=== PATIENT | male | born 1950 | race Caucasian/White ===

== ENCOUNTER → 2020-02-25 07:57 | Outpatient (CLI) | payer MEDICARE, OTHER | END | disposition home or self-care (01) | LOC: D.HCCECHO 07:57 | PROVIDERS: ATTEND Internal Medicine Cardiovascular Disease | DX: I42.9 Cardiomyopathy, unspecified (principal) ==

== ENCOUNTER → 2020-04-19 07:19 | Outpatient (CLI) | payer MEDICARE, OTHER | END | disposition home or self-care (01) | LOC: D.HCCARDIO 07:19 | PROVIDERS: ATTEND Internal Medicine Cardiovascular Disease | DX: I25.10 Atherosclerotic heart disease of native coronary artery without angina pectoris (principal) ==

== ENCOUNTER 2020-05-10 10:50 | Outpatient (CLI) | payer MEDICARE, OTHER ==
[~2020-05-10] VITALS: Ht 182.9 cm; Wt 115.5 kg
--- NOTE | ~2020-05-10 | OP ---
PATIENT NAME: YUE MORENO MEDICAL RECORD: [id number] :52 LOCATION:[id number] ADMISSION DATE: SURGEON: MOY QUINTANA MD DATE OF OPERATION: 05/10/2020 PROCEDURE: Left heart catheterization, selective coronary angiography, right femoral artery approach. CATHETERS: A 5-[place]izen [place] sheath, 5/4 left and right Nava, 5/4 pig. The procedure was well tolerated. The patient returned to the webber after we proceeded with the PTCA stenting to the jamul right. FINDINGS: Left ventriculography in 30-degree LEES view: Normal wall motion and normal systolic function. CORONARY ANATOMY: LEFT MAIN: Left main is free of disease. LAD: Totally occluded in its proximal portion. CIRCUMFLEX: There is a small circumflex branch off the left main. It is free of disease. RIGHT CORONARY ARTERY: [place] right coronary jamul has a 90% plus stenosis in mid portion with severe diffuse disease distally. BYPASS GRAFT: Saphenous vein graft to LAD: This graft itself is highly ectatic consistent with a 20+ HeRO graft; however, this fills the LAD and LAD has no post-anastomotic stenosis. Ramus high OM graft is noted in saphenous vein graft. This again is highly ectatic; however, fills the ramus without stenosis distally. Circumflex graft: Circumflex graft again ectatic but patent with no distal circumflex stenosis. PLAN: Intervention of the jamul right momentarily. DESCRIPTION OF PROCEDURE: A 5-Citizen [place] sheath was exchanged for a 6-Citizen [place] sheath. Hockey stick guide catheter provided excellent guide catheter support followed by 300 cm Whisper wire. We initially used a 3.0 balloon starting distally at the PDA all the way up to the 90% plus stenosis with inflations up to 10 and 12 atmospheres for 45 seconds. This showed excellent resolution of a distal stenosis both mid stenosis still significant residual. This was addressed with a 3.0 x 18 mm Jerome drug-eluting stent up to 14 atmospheres. Final angiography shows much improved vessel with distal vasculature improved as well as the 90% stenosis, no significant residual. RON flow was 3 throughout the procedure. Sheath was closed with ExoSeal device. Plavix loaded in the lab. TRANSINT:[id number] Voice Confirmation ID: [id number] DOCUMENT ID: [id number] OPERATIVE REPORT [id number] YUE MORENO MOY QUINTANA MD CC: [id number] DICTATION DATE: 05/10/20 1544 TRANSPORT COORDINATOR: 05/11/20 0051 DEP CLI 05/10/20 [place] [id number] [place] [id number]
--- NOTE | ~2020-05-10 | HP ---
PATIENT: YUE MORENO MEDICAL RECORD: [id number] ACCOUNT: [id number] LOCATION:[facility] : 52 ADMISSION DATE: 05/10/20 PCP: RACHEL PEDRAZA MD HISTORY AND PHYSICAL EXAMINATION HISTORY OF PRESENT ILLNESS: This is a 69-year-old gentleman with a known history of coronary artery disease, status post coronary bypass grafting 20 years ago, was seen in the office with cardiomyopathy, EF has actually improved on therapy as part of workup. He also underwent a Cardiolite stress testing, which showed reversibility along the anterior and lateral fischer. He is 20 years out from his bypass grafting with no intervention since, being admitted for angiography, intervention based on above. PAST MEDICAL HISTORY: Includes: 1. History of cardiomyopathy, improved on therapy. 2. Hypertension. 3. Coronary artery disease as described above. 4. Dyslipidemia. MEDICATIONS: Include aspirin 81 every day, carvedilol 6.25 every day, Plavix 75 every day, simvastatin 40 every day, Imdur 30 every day. PHYSICAL EXAMINATION: GENERAL: Pleasant gentleman, in no acute distress, appears stated age. HEENT: Normocephalic, atraumatic. NECK: No bruits noted. HEART: Regular. LUNGS: Fair air excursion. ABDOMEN: Soft, nontender. EXTREMITIES: Pulses 2+. No edema. IMPRESSION: 1. Recurrent ischemia, some 20 years out from bypass grafting. 2. Cardiomyopathy, improved on therapy. PLAN: For angiography, intervention based on above. TRANSINT:[id number] Voice Confirmation ID: [id number] DOCUMENT ID: [id number] MOY QUINTANA MD CC: [id number] DICTATION DATE: 05/10/20832 DISTRIBUTION DISPATCHER: 05/10/[address] [facility] [address] [place] [id number]
--- NOTE | ~2020-05-10 | HEMODYNAMI ---
PATIENT:YUE MORENO MEDICAL RECORD: [id number] : 52 LOCATION:[facility] ADMISSION DATE: 05/10/20 Generatedon:05/10/202015:44 Patient name: YUE MORENO Patient #: [id number] SSN: [id number] : 1950 Date of study: 05/10/2020 Page: Of Hemodynamic Procedure Report Patient Data Patient Demographics Procedure consent was obtained First Name: YUE Gender: Male Last Name: JOSH : 1950 Middle Initial: BENJAMIN Age: 69 year(s) Patient #: [id number] Race: SSN: [id number] Additional ID: [id number] Contact details Address: [address] [place] [address] [facility] State: [place] City: [place] Zip code: [address] Past Medical History Performed procedures and imaging results Date Procedure Procedure Results Comments 04/21/2020 Stress testing Positive->Intermediate with SPECT MPI risk Allergies Allergen Reaction Date Comments Reported Other allergy 05/10/2020 [facility] Admission Admission Data Admission Date: 05/10/2020 Admission Time: 10:50 Arrival Date: 05/10/2020 Arrival Time: 0:00 Admit Source: Other Height (in.): 72.05 BSA: 2.37 (m2) Height (cm.): 183 BMI: 34.64 (kg/m2) Weight (lbs.): 255.74 Weight (kg.): 116 Lab Results Lab Result Date: 05/10/2020 Lab Result Time: 0:00 Biochemistry Name Units Result Min Max BUN mg/dl 18 --(---*)-- 7 18 Creatinine mg/dl 1.1 --(--*-)-- 0.6 1.3 eGFR ml/min 70.60690 *-(----)-- 90 120 NONAFRICAN CBC Name Units Result Min Max Hematocrit % 45.7 --(-*--)-- 42 54 Hemoglobin g/dl 14.9 --(-*--)-- 13.5 17.5 Procedure Procedure Types Cath Procedure Diagnostic Procedure [facility] w/Coronaries w/Grafts Sedation Charges Moderate Sedation up to 30 minutes PCI Procedure Coronary Stent Coronary Stent Initial Hemochron ACT Test Procedure Description Procedure Date Procedure Date: 05/10/2020 Procedure Start Time: 15:02 Procedure End Time: 15:42 Procedure Staff Name Function Miah Hoang MD Performing Physician Kathy Schneider RT Monitor Joseline Martinez RT Scrub Dontae Lam RN Nurse Indication CAD Procedure Data Cath Procedure Fluoroscopy Diagnostic fluoroscopy Total fluoroscopy Time: time: 10.1 min 10.1 min Diagnostic fluoroscopy Total fluoroscopy dose: dose: 2458 mGy 2458 mGy Contrast Material Contrast Material Type Amount (ml) Isovue 300 222 Entry Location Entry Primary Successful Side Size Upsize Upsize Entry Closure Succes sful Closure Location (Fr) 1 (Fr) 2 (Fr) Remarks Device Remarks Femoral Right 5 Fr 6 Fr Exoseal artery Short Estimated blood loss: 10 ml Diagnostic catheters Device Type Used For End Catheter Placement MULTIPACK JL 4.0 5Fr Left Coronary catheter Angiography MULTIPACK 3DRC 5Fr Procedure catheter MULTIPACK Pigtail 5 Fr LV Angiography catheter DIAGNOSTIC AR MOD 5Fr Procedure Catheter (632843T) Procedure Complications No complications Procedure Medications Medication Administration Route Dosage Oxygen etCO2 Nasal cannula 2 l/min Lidocaine 2% added to field 20 Heparin Flush Bag added to field 2 bags (1000units/500ml NS) 0.9% NaCl I.V. 100 ml/hr Versed I.V. 1 mg Fentanyl I.V. 50 mcg Versed I.V. 1 mg Fentanyl I.V. 50 mcg Heparin Bolus I.V. 5000 units Versed I.V. 1 mg Versed I.V. 1 mg Fentanyl I.V. 50 mcg Fentanyl I.V. 50 mcg Versed I.V. 1 mg Hemodynamics Rest BSA: 2.37 (m2) HGB: 14.9 (g/dl) O2 Consumption: Estimated: 277.22 (ml/min) O2 Co nsumption indexed: Estimated:116.97 (ml/min/m) Heart Rate: 72 (bpm) Pressure Samples Time Site Value (mmHg) Purpose Heart Use Rate(bpm) 15:16 LV 122/5,11 Snapshot 70 15:17 AO 123/89(83) Pullback 70 Gradients Valve Time Site Site 2 Mean SEP/DFP Peak To Heart Use 1 (mmHg) (sec/min) Peak Rate (mmHg) (bpm) Aortic 15:17 LV AO 15 21 70 123/89(83) Calculations Valve P-P Mean Valve Index Valve Source Name Gradient Area Flow (cm2) Aortic 15 15 Snapshots Pre Cath Intra NCS Post Cath Vital Signs Time Heart Resp SPO2 etCO2 NIBP (mmHg) Rhythm Pain Sedation Rate (ipm) (%) (mmHg) Status Level (bpm) 14:42:22 69 17 99 32.9 147/83(113) NSR 0 (11) 10(A) , No pain 14:46:51 69 15 94 30.6 140/71(92) NSR 0 (11) 10(A) , No pain 14:51:19 69 11 94 0 119/75(100) NSR 0 (11) 10(A) , No pain 14:55:37 69 19 95 0 108/76(90) NSR 0 (11) 10(A) , No pain 14:59:49 69 17 95 0 123/79(97) NSR 0 (11) 10(A) , No pain 15:04:11 69 16 93 0 122/70(93) NSR 0 (11) 9(A) , No pain 15:08:31 69 13 94 2.9 125/73(84) NSR 0 (11) 9(A) , No pain 15:12:52 69 16 96 27.6 129/78(107) NSR 0 (11) 9(A) , No pain 15:17:16 69 14 95 32.8 117/72(100) NSR 0 (11) 9(A) , No pain 15:21:34 69 13 94 39.6 127/77(93) NSR 0 (11) 9(A) , No pain 15:25:52 69 10 98 22.4 113/73(91) NSR 0 (11) 9(A) , No pain 15:30:08 69 11 94 34.4 128/78(111) NSR 0 (11) 10(A) , No pain 15:34:32 69 13 97 29.1 118/69(94) NSR 0 (11) 10(A) , No pain 15:38:50 69 12 98 33.6 134/78(102) NSR 0 (11) 10(A) , No pain Medications Time Medication Route Dose Verified Delivered Reason Notes Effectiveness by by 14:41:36 Oxygen etCO2 2 Miah Buffie used for Nasal l/min St Orlando Lam RN procedure cannula 14:41:45 Lidocaine 2% added 20ml Miah Miah for local to vial [facility] anesthetic field MD TRUJILLO 14:41:53 Heparin Flush added 2 Miah Miah used for Bag to bags [facility] procedure (1000units/500ml field MD TRUJILLO NS) 14:42:03 0.9% NaCl I.V. 100 Miah Buffie Per physician ml/hr St Orlando Lam RN, MD 14:52:13 Versed I.V. 1 mg Miah Buffie for sedation St Orlando Lam RN, MD 14:52:20 Fentanyl I.V. 50 Miah Buffie for sedation mcg [facility] Orlando Lam RN, MD 15:00:45 Versed I.V. 1 mg Miah Buffie for sedation St Orlando Lam RN, MD 15:00:48 Fentanyl I.V. 50 Miah Buffie for sedation mcg [facility] Orlando Lam RN, MD 15:06:53 Versed I.V. 1 mg Miah Buffie for sedation St Orlando Lam RN, MD 15:06:58 Fentanyl I.V. 50 Miah Buffie for sedation mcg [facility] Orlando Lam RN, MD 15:15:00 Fentanyl I.V. 50 Miah Buffie for sedation mcg [facility] Orlando Lam RN, MD 15:15:54 Versed I.V. 1 mg Miah Buffie for sedation St Orlando Lam RN, MD 15:21:46 Heparin Bolus I.V. 5000 Miah Buffie for verif ied units St Orlando Lam RN anticoagulation with dr MD boudreaux 15:28:38 Versed I.V. 1 mg Miah Buffie for sedation St Orlando Lam RN, MD Procedure Log Time Note 14:11:05 Informed consent obtained and on chart 14:11:23 Diagnostic Cath Status : Elective 14:12:19 Stress Test: yes; abnormal inferior 14:12:26 Admit Source: Other 14:12:32 ACC Patient presents with Stable Angina CCS Anginal Class 2--Slight limitation of ordinary activity. 14:12:36 Procedure Status Elective Heart Cath (OP). 14:12:39 Time tracking: Regular hours (M-F 7:00 - 5:00) 14:12:44 Plan of Care:Hemodynamics will remain stable., Cardiac rhythm will remain stable., Comfort level will be maintained., Respiratory function will remain adequate., Patient/ family verbilizes understanding of procedure., Procedure tolerated without complication., Recovers from procedure without complications.. 14:26:01 madonna Schneider RT(R) (CV) sent for patient. Start room use. 14:27:38 Indication : CAD 14:27:49 Arrival Date: 05/10/2020 12:00:00 AM 14:29:58 Patient allergic to Other allergyNKDA 14:31:11 Lab Result : eGFR NONAFRICAN 70.72753 ml/min 14:31:11 Lab Result : Creatinine 1.1 mg/dl 14:31:11 Lab Result : BUN 18 mg/dl 14:31:11 Lab Result : Hemoglobin 14.9 g/dl 14:31:12 Lab Result : Hematocrit 45.7 % 14:31:19 Patient Height : 72.05 inches 14:31:23 Patient Weight : 255.74 lbs 14:31:54 H&P Date Dictated: 05/10/2020 H&P Addendum completed by physician on day of procedure. (MUST COMPLETE FOR ALL OUTPATIENTS), New H&P dictated by physician.. 14:32:41 Patient received from Pre/Post Procedure Room to CCL 1 Alert and oriented. Tansferred to table in Supine position. 14:32:45 Warm blankets applied, and lisandra hugger turned on for patient comfort. 14:32:46 Correct patient and procedure confirmed by team. 14:32:47 ECG and BP/O2 sat monitors applied to patient. 14:32:52 Pre-procedure instructions explained to patient. 14:32:55 Pre-op teaching completed and patient verbalized understanding. 14:32:58 Family in patients room. 14:33:02 Patient NPO since Midnight. 14:33:05 Is the patient allergic to Iodine/contrast media? No. 14:33:08 Was the patient premedicated? Yes 14:33:13 Is patient on blood thinner?Yes 14:33:18 ACC The patient was administered the following blood thiners within the last 24 hours: ACCPlavix 14:33:26 Patient diabetic? No. 14:33:29 - 14:33:30 ----Pre-sedation anethsthesia assessment.---- 14:33:34 Previous problem with sedation/anesthesia? No ? 14:33:37 Snore? Yes 14:33:39 Sleep apnea? No 14:33:42 Opens mouth fully? Yes 14:33:45 Sticks out tongue? Yes 14:33:49 Airway obstruction? No ? 14:33:52 Dentures? No ? 14:41:11 Vital chart was started 14:41:12 Baseline sample Acquired. 14:41:18 Rhythm: sinus rhythm 14:41:20 Baseline sample Acquired. 14:41:23 Full Disclosure recording started 14:41:35 Pre procedure: right dorsailis pedis pulse 1+ Palpable, but thready & weak; easily obliterated 14:41:36 Oxygen 2 l/min etCO2 Nasal cannula was administered by Dontae Lam RN; used for procedure; Verbal order read back and verified. 14:41:45 Lidocaine 2% 20ml vial added to field was administered by Miah Hoang MD; for local anesthetic; Verbal order read back and verified. 14:41:46 IV patent on arrival in left forearm with 0.9% NaCl at [facility]. 14:41:53 Heparin Flush Bag (1000units/500ml NS) 2 bags added to field was administered by Miah Hoang MD; used for procedure; Verbal order read back and verified. 14:41:53 Lab results completed and on chart. 14:42:03 0.9% NaCl 100 ml/hr I.V. was administered by Dontae Lam RN; Per physician; Verbal order read back and verified. 14:43:45 Right groin area was prepped with chlora-prep and draped in sterile fashion 14:43:47 Alarms reviewed by R. N. 14:43:47 Sharps counted by scrub and verified by R.N. 14:43:52 Use device set Femoral Dx 14:43:54 ACIST Syringe (20311) opened to sterile field. 14:43:55 Bag Decanter (2001S) opened to sterile field. 14:43:56 Medline Cath Pack ([id number]) opened to sterile field. 14:43:58 ACIST Hand Control (47437) opened to sterile field. 14:43:58 ACIST Manifold (75904) opened to sterile field. 14:44:00 DIAGNOSTIC Multipack 5Fr catheter set ([id number]) opened to sterile field. 14:44:00 Tegaderm 4 x 4 (1626W) opened to sterile field. 14:44:02 SHEATH 5FR Udell (ZUA863) opened to sterile field. 14:44:03 EMERALD Guide Wire (264-130) opened to sterile field. 14:51:03 Risk of Mortality: 0.1 14:51:07 Risk of blood transfusion: 0.1 14:51:11 Risk of NELA: 0.7 14:51:15 Physician arrived 14:51:15 --------ALL STOP TIME OUT------ 14:51:16 Final Timeout: patient, procedure, and site verified with staff and physician. All members of the team are in agreement. 14:51:19 Right groin site verified by team. 14:51:25 Fire Safety Assessment: A--An alcohol-based skin anteseptic being used preoperatively., C--Open oxygen or nitrous oxide is being used., D--An ESU, laser, or fiber-optic light is being used. 14:51:29 Physical assessment completed. ASA score P 2 - A patient with mild systemic disease as per Miah Hoang MD. 14:51:35 2) 60-89 Mildly reduced kidney function, and other findings (as for stage 1) point to kidney disease. 14:51:41 Maximum allowable contrast dose (3.7 X eGFR X 0.75)197 ml. 14:51:50 Sedation plan: IV Moderate Sedation Medication:Versed, Fentanyl 14:52:13 Versed 1 mg I.V. was administered by Dontae Lam RN; for sedation; Verbal order read back and verified. 14:52:20 Fentanyl 50 mcg I.V. was administered by Dontae Lam RN; for sedation; Verbal order read back and verified. 14:53:26 Zero performed for pressure channel P1 15:00:45 Versed 1 mg I.V. was administered by Dontae Lam RN; for sedation; Verbal order read back and verified. 15:00:48 Fentanyl 50 mcg I.V. was administered by Dontae Lam RN; for sedation; Verbal order read back and verified. 15:01:25 Procedure started. 15:02:52 Local anesthetic to right femoral artery with Lidocaine 2% by Miah Perry MD.INITIAL ACCESS ONLY 15:03:09 A 5 Fr sheath was inserted into the Right Femoral artery 15:03:21 A MULTIPACK JL 4.0 5Fr catheter was advanced over the wire and used for Left Coronary Angiography. 15:04:13 LCA angiography performed. 15:04:20 Injector settings: Ml/sec: 3, Volume: 6, 15:04:35 Catheter removed. 15:04:48 A MULTIPACK 3DRC 5Fr catheter was advanced over the wire and used for Procedure. 15:06:06 RCA angiography performed. 15:06:36 SVG to Circ AND OM angiography performed. 15:06:42 Injector settings: Ml/sec: 3, Volume: 6, 15:06:53 Versed 1 mg I.V. was administered by Dontae Lam RN; for sedation; Verbal order read back and verified. 15:06:58 Fentanyl 50 mcg I.V. was administered by Dontae Lam RN; for sedation; Verbal order read back and verified. 15:08:09 SVG to Ramus angiography performed. 15:08:22 Injector settings: Ml/sec: 3, Volume: 6, 15:09:39 KRISHNA to LAD angiography performed. 15:10:21 Injector settings: Ml/sec: 3, Volume: 6, 15:10:24 Catheter removed. 15:11:00 A DIAGNOSTIC AR MOD 5Fr Catheter ([id number]) was advanced over the wire and used for Procedure. 15:11:04 SVG to RCA angiography performed. 15:12:01 SVG to Circ angiography performed. 15:15:00 Fentanyl 50 mcg I.V. was administered by Dontae Lam RN; for sedation; Verbal order read back and verified. 15:15:14 RCA angiography performed. 15:15:19 Injector settings: Ml/sec: 3, Volume: 6, 15:15:39 Catheter removed. 15:15:52 A MULTIPACK Pigtail 5 Fr catheter was advanced over the wire and used for LV Angiography. 15:15:54 Versed 1 mg I.V. was administered by Dontae Lam RN; for sedation; Verbal order read back and verified. 15:16:25 LV gram done using LEES 15:16:30 Injector settings: Ml/sec: 5, Volume: 15, 15:17:08 EF : 50 % 15:17:10 LV hemodynamics recorded. 15:17:17 Catheter removed. 15:17:22 Proceeding to intervention. 15:18:45 SHEATH 6FR Udell (MAD429) opened to sterile field. 15:18:47 WHISPER 300cm guide wire ([id number]) opened to sterile field. 15:19:03 GUIDE 6FR HS I catheter (LA6HSI) opened to sterile field. 15:19:30 Sheath upsized to a 6 Fr Short. 15:19:43 Pre PCI Site: [place] mRCA has 90% stenosis. 15:19:51 6 Fr HSI guide catheter was inserted over the wire 15:19:59 [id number] wire advanced. 15:20:03 ACC Pre-intervention RON Flow is 3. 15:21:17 INFLATOR Merit BasixCompak (GN7928) opened to sterile field. 15:21:46 Heparin Bolus 5000 units I.V. was administered by Dontae Lam RN; for anticoagulation; verified with dr boudreaux Verbal order read back and verified. 15:25:06 Wire advanced across lesion. 15:26:13 Inflate balloon Inflation number: 1 A EUPHORA 3.0 x 15 Balloon ([id number]) was prepped and advanced across the Dist RCA , then inflated to 10 DANGELO for 0:05 (min:sec) . 15:26:32 Inflation number: 2 The EUPHORA 3.0 x 15 Balloon ([id number]) was reinflated across the Dist RCA , to 10 DANGELO for 0:15 (min:sec) . 15:26:49 Inflation number: 3 The EUPHORA 3.0 x 15 Balloon ([id number]) was reinflated across the Dist RCA , to 10 DANGELO for 0:10 (min:sec) . 15:26:54 Inflation number: 4 The EUPHORA 3.0 x 15 Balloon ([id number]) was reinflated across the Dist RCA , to 10 DANGELO for 0:00 (min:sec) . 15:27:03 Inflation number: 5 The EUPHORA 3.0 x 15 Balloon ([id number]) was reinflated across the MID RCA , to 12 DANGELO for 0:00 (min:sec) . 15:27:40 Inflation number: 6 The EUPHORA 3.0 x 15 Balloon ([id number]) was reinflated across theMID RCA , to 12 DANGELO for 0:00 (min:sec) . 15:28:21 Balloon removed over the wire. 15:28:38 Versed 1 mg I.V. was administered by Dontae Lam RN; for sedation; Verbal order read back and verified. 15:30:16 MICROPUNCTURE 4FR Cook (O72578) opened to sterile field. 15:31:34 Place stent Inflation Number: 1 A DAVID RX 3.0 x 18 stent ([id number]) was prepped and advanced across the Mid RCA . The stent was deployed at 14 DANGELO for 0:16 (min:sec) . 15:32:10 Inflation number: 2 The EUPHORA 3.0 x 15 Balloon ([id number]) was reinflated across the Mid RCA , to 12 DANGELO for 0:00 (min:sec) . 15:33:23 Stent catheter was removed intact over wire. 15:33:27 ACC Post-intervention RON Flow is 3. 15:33:40 Post PCI Site: [place] mRCA has 0% stenosis. 15:34:05 EXOSEAL 6Fr (EX600) opened to sterile field. 15:34:08 Wire removed. 15:34:09 Guide catheter removed. 15:34:30 Sheath removed intact; hemostasis achieved with Exoseal to the Right Femoral artery. 15:34:34 Procedure ended.(Physican Out) 15:35:53 Fluoroscopy time 10.10 minutes. 15:36:02 Flurop Dose total: 2458 15:36:02 Fluoroscopy dose: 2458 mGy 15:36:16 Contrast amount:Isovue 300 222ml. 15:36:20 Maximum allowable dose exceeded? Yes. 15:36:22 Sharps counted by scrub and verified by R.N. 15:36:28 Post-op/insertion site Right Femoral artery dressed using a 4 x 4 and Tegaderm. 15:36:33 Post-procedure physical assessment completed. ASA score P 2 - A patient with mild systemic disease as per Miah Hoang MD. 15:36:38 Post procedure rhythm: unchanged. 15:36:43 Estimated blood loss: 10 ml 15:36:45 Post procedure instruction explained to patient.Patient verbalizes understanding. 15:36:46 Patient needs reinforcement of post procedure teaching. 15:37:40 Procedure type changed to Cath procedure, Diagnostic procedure, LHC, LH C w/Coronaries w/Grafts, Sedation Charges, Moderate Sedation up to 30 minutes, PCI procedure, Coronary Stent, Coronary Stent Initial, Hemochron ACT Test 15:37:43 Procedure and supply charges have been captured, reviewed, submitted an d are correct. 15:40:27 Procedure Complication : No complications 15:40:31 Vital chart was stopped 15:40:34 [facility] Findings: MVD- PCI performed (see procedure note) 15:41:05 ACT drawn and resulted at 162 seconds. (normal therapeutic range 180-24 0 seconds). 15:41:37 Operative report dictated upon procedure completion. 15:41:38 See physician's report for complete and final results. 15:41:41 Report given to Pre/Post Procedure Room. 15:41:47 Patient transfered to Pre/Post Procedure Room with Stretcher. 15:42:00 Procedure ended. 15:42:00 Full Disclosure recording stopped 15:42:12 ACC-PCI Only Patient was given prescriptions, or instructed by Miha Hoang MD to start/continue the following medications upon discharge: Plavix 15:42:14 End room use (Document Last) Intervention Summary Intervention Notes Time ActionType Lesion and Equipment Used Action# Pressure Duration Attributes 15:26:13 Inflate Dist RCA EUPHORA 3.0 x 1 10 00:05 balloon 15 Balloon ([id number]) 15:26:32 Reinflate Dist RCA EUPHORA 3.0 x 2 10 00:15 balloon 15 Balloon ([id number]) 15:26:49 Reinflate Dist RCA EUPHORA 3.0 x 3 10 00:10 balloon 15 Balloon ([id number]) 15:26:54 Reinflate Dist RCA EUPHORA 3.0 x 4 10 00:00 balloon 15 Balloon ([id number]) 15:27:03 Reinflate Dist RCA EUPHORA 3.0 x 5 10 00:00 balloon 15 Balloon ([id number]) 15:27:40 Reinflate Dist RCA EUPHORA 3.0 x 6 12 00:00 balloon 15 Balloon ([id number]) 15:31:34 Place stent Mid RCA DAVID RX 3.0 x 1 14 00:16 18 stent ([id number]) 15:32:10 Reinflate Mid RCA EUPHORA 3.0 x 2 12 00:00 balloon 15 Balloon ([id number]) Device Usage Item Name Manufacture Quantity Catalog Hospital Part Current [facility] Lot# / Number Charge Number Stock Stock Serial# Code ACIST Syringe Acist 1 70209 920601 038181 896253 20 (09251) Medical Systems Inc Bag Decanter Microtek 1 910374 81325 798239 5 () Medical Inc. Medline Cath Medline 1 [id number] 529990 82808 989073 5 Pack ([id number]) ACIST Hand Acist 1 12695 012314 027552 637619 5 Control Medical (06039) Systems Inc ACIST Manifold Acist 1 32780 266770 761325 744620 5 (61226) Medical Systems Inc DIAGNOSTIC Cardinal 1 VU5384 349346 13305 948755 30 Multipack 5Fr Health catheter set (SM5675) Tegaderm 4 x 4 3M 1 1626W 943856 486680 309639 5 (1626W) SHEATH 5FR Terumo 1 RQT977 198760 274902 326325 5 Udell (CAT458) EMERALD Guide Cardinal 1 502-455 842022 297834 649821 5 Wire (502-455) Health MULTIPACK JL Cardinal 1 658272 5 4.0 5Fr Health catheter MULTIPACK 3DRC Cardinal 1 062564 5 5Fr catheter Health MULTIPACK Cardinal 1 195598 5 Pigtail 5 Fr Health catheter DIAGNOSTIC AR Cardinal 1 [id number] 402821 097397 472772 15 MOD 5Fr Health Catheter (040043N) SHEATH 6FR Terumo 1 UQL892 133353 700557 250069 40 Udell (GZC206) WHISPER 300cm Loja 1 [id number] 171656 495275 688923 5 guide wire Vascular ([id number]) GUIDE 6FR HS I Medtronic 1 LA6HSI 495096 67726 073744 1 catheter (LA6HSI) INFLATOR Merit Merit 1 SR1548 724064 730878 414367 15 BasixCompak Medical (JA8928) EUPHORA 3.0 x Medtronic 1 [id number] 906865 879577 528062 5 [id number] 15 Balloon ([id number]) MICROPUNCTURE [employer] 1 B01944 008787 100237 929383 5 4FR [employer] (T87094) DAVID RX 3.0 x Medtronic 1 [id number] 196704 2571542 305612 5 [id number] 18 stent ([id number]) EXOSEAL 6Fr Cardinal 1 EX600 673029 364100 993885 10 (EX600) Health Signature Audit [place] Stage Time Signature Unsigned Intra-Procedure 05/10/2020 Kathy Schneider 3:42:48 PM RT(R) (CV) Intra-Procedure 05/10/2020 Dontae Lam RN 3:44:27 PM Intra-Procedure 05/10/2020 Miah Hoang MD 3:44:52 PM [facility] [address] [place] [address]
[2020-05-10] MEDS ORDERED: ATIVAN1 MG PO (11:13)
[2020-05-10] MEDS ORDERED: DONEPEZIL HCL10 MG PO (11:14)
[2020-05-10] MEDS ORDERED: XANAX0.5 MG PO (11:14)
[2020-05-10] MEDS ORDERED: COREG6.25 MG PO (11:15)
[2020-05-10] MEDS ORDERED: ISOSORBIDE MONO30 M1 PO (11:15)
[2020-05-10] MEDS ORDERED: PROZAC20 MG PO (11:16)
[2020-05-10] MEDS ORDERED: PLAVIX75 MG PO (11:16)
[2020-05-10] MEDS ORDERED: DIOVAN160 MG PO (11:18)
[2020-05-10] MEDS ORDERED: NITROSTAT0.4 MG SL (11:18)
[2020-05-10] MEDS ORDERED: BAYER CHEWABLE81 MG PO (11:18)
[2020-05-10] MEDS ORDERED: ZOCOR40 MG PO (11:18)
[2020-05-10] MEDS ORDERED: COLESTID1 GM PO (11:19)
[2020-05-10] MEDS ORDERED: LACTINEX GRANUL1 PCK PO (11:19)
[2020-05-10] MEDS ORDERED: CENTRUM MEN'S1 EACH PO (11:20)
[2020-05-10 11:31] VITALS: BP 127/64; Ht 182.9 cm; Wt 115.5 kg
[2020-05-10 11:35] LABS: BASOPHILS 0.3 % (0-2); EOSINOPHILS 0.8 % (0-7); HEMATOCRIT 45.7 % (42.0-54.0); HEMOGLOBIN 14.9 g/dL (13.5-17.5); IMMATURE GRANULOCYTES 0.3 % (0-5); LYMPHOCYTES 30.9 % (15-50); MCH 31.7 pg (26.0-34.0); MCHC 32.6 g/dL (31.0-37.0); MCV 97.2 fL (80.0-100.0); MEAN PLATELET VOLUME 9.5 fL (7.4-10.4); MONOCYTES 8.6 % (2-11); NEUTROPHILS 59.1 % (40-80); PLATELET COUNT 213 10x3/uL (130-400); RDW 12.9 % (11.5-14.5); WBC 6.3 10x3/uL (4.8-10.8)
[2020-05-10 12:19] LABS: ANION GAP 9.3 mmol/L (8-16); CALCIUM 9.1 mg/dL (8.5-10.1); CARBON DIOXIDE 30.1 mmol/L (21.0-32.0); CHOL - HDL RATIO 3.8 ratio (2.3-4.9); CREATININE - SERUM 1.1 mg/dL (0.6-1.3); LDL-HDL RATIO 1.6 ratio (1.5-3.5); POTASSIUM - SERUM 4.4 mmol/L (3.5-5.1)
--- NOTE | 2020-05-10 15:51 | NUR ---
PT ARRIVED BY STRETCHER. PLACED ON MONITORS. ASSESSMENT COMPLETED. VSS. PT'S AT BEDSIDE. CALL LIGHT WITHIN REACH.
--- NOTE | 2020-05-10 16:06 | NUR ---
RIGHT GROIN DRESSING C/D/I. NO S/S OF HEMATOMA NOTED. CALL LIGHT WITHIN REACH. VSS AT THIS TIME. FAMILY AT BEDSIDE.
--- NOTE | 2020-05-10 16:40 | NUR ---
RIGHT GROIN DRESSING C/D/I. NO S/S OF HEMATOMA NOTED. CALL LIGHT WITHIN REACH. VSS AT THIS TIME. TOLERATING SIPS OF WATER. DENIES NAUSEA.
--- NOTE | 2020-05-10 17:10 | NUR ---
RIGHT GROIN DRESSING C/D/I. NO S/S OF HEMATOMA NOTED. CALL LIGHT WITHIN REACH. VSS AT THIS TIME. FAMILY AT BEDSIDE.
--- NOTE | 2020-05-10 17:40 | NUR ---
RIGHT GROIN DRESSING C/D/I. NO S/S OF HEMATOMA NOTED. CALL LIGHT WITHIN REACH. VSS AT THIS TIME. FAMILY AT BEDSIDE.
--- NOTE | 2020-05-10 18:10 | NUR ---
RIGHT GROIN DRESSING C/D/I. NO S/S OF HEMATOMA NOTED. CALL LIGHT WITHIN REACH. FAMILY AT BEDSIDE. NO NEEDS AT THIS TIME.
--- NOTE | 2020-05-10 18:30 | NUR ---
RIGHT GROIN DRESSING C/D/I. NO S/S OF HEMATOMA NOTED. CALL LIGHT WITHIN REACH. VSS AT THIS TIME. HEAD OF BED INC TO 30 DEGREES. TOLERATED WELL. SET UP WITH SANDWICH TRAY AND DRINK. DENIES NAUSEA/PAIN AT THIS TIME. FAMILY AT BEDSIDE.
--- NOTE | 2020-05-10 19:00 | NUR ---
RIGHT GROIN DRESSING C/D/I. NO S/S OF HEMATOMA NOTED. PIV D/C'D WITH CATH TIP INTACT. TOLERATED WELL. PT INSTRUCTED TO GET UP AND DRESSED AT THIS TIME. FAMILY AT BEDSIDE TO ASSIST.
--- NOTE | 2020-05-10 19:10 | NUR ---
PT AMBULATED TO RESTROOM. VOIDED WITHOUT DIFFICULTY. STEADY GAIT NOTED. DISCUSSED DISCHARGE INSTRUCTIONS WITH PT AND PT'S . THEY VOICED UNDERSTANDING.
--- NOTE | 2020-05-10 19:15 | NUR ---
RIGHT GROIN DRESSING C/D/I. NO S/S OF HEMATOMA NOTED. PT TAKEN DOWN TO VEHICLE BY WHEELCHAIR. NO S/S OF DISTRESS NOTED. ALL BELONGINGS AND PAPERWORK IN HAND.
== END 2020-05-10 19:15 | disposition home or self-care (01) ==
LOC: D.CATH 10:50
PROVIDERS: ATTEND Internal Medicine Interventional Cardiology
DX: I25.10 Atherosclerotic heart disease of native coronary artery without angina pectoris (principal); Z95.1 Presence of aortocoronary bypass graft; I10 Essential (primary) hypertension; E78.5 Hyperlipidemia, unspecified
CPT/HCPCS: 93459; C9600